=== PATIENT | male | born 1960 | race American Indian/Alaskan Native ===

== ENCOUNTER 2018-02-22 11:51 | Emergency (ER) | payer MEDICAID ==
[2018-02-22 11:53] VITALS: BMI 30.7
--- NOTE | 2018-02-22 13:04 | ED PDOC ---
Arrival/HPI - General Chief Complaint: Back Pain Time Seen by Provider: 02/22/18 12:35 Historian: Patient - History of Present Illness Narrative History of Present Illness (Text): 02/22/18 12:35 57 year old male, with past medical history of arthritis and bronchitis, presents to the emergency department complaining of lower back pain since 1 week. Patient states worsening non-radiating pain associated with difficulty walking today, prompting him to present to the emergency department for evaluation. Patient additionally informs bilateral leg swelling since 1 week, and actively bleeding ulcer on the left leg. Patient denies any fever, chills, nausea, vomiting, diarrhea, abdominal pain, chest pain, shortness of breath, trauma, or any other complaints. Patient admits to smoking cigarettes and occasionally drinking beer. Time/Duration: 1 week Symptom Onset: Gradual Symptom Course: Unchanged Quality: Aching Activities at Onset: Light Context: Home Past Medical History - Provider Review Nursing Documentation Reviewed: Yes - Infectious Disease Hx of Infectious Diseases: None - Tetanus Immunization Tetanus Immunization: Unknown - Cardiac Hx Cardiac Disorders: No - Pulmonary Hx Respiratory Disorders: Yes Hx Bronchitis: Yes - Neurological Hx Neurological Disorder: No - HEENT Hx HEENT Disorder: No - Renal Hx Renal Disorder: No - Endocrine/Metabolic Hx Endocrine Disorders: No - Hematological/Oncological Hx Blood Disorders: No - Integumentary Hx Dermatological Disorder: No - Musculoskeletal/Rheumatological Hx Musculoskeletal Disorders: Yes Hx Arthritis: Yes Hx Falls: No - Gastrointestinal Hx Gastrointestinal Disorders: No - Genitourinary/Gynecological Hx Genitourinary Disorders: No Hx Reproductive Disorders: No - Psychiatric Hx Psychophysiologic Disorder: No Hx Depression: No Hx Substance Use: No - Surgical History Hx Orthopedic Surgery: Yes Other/Comment: Right knee surgery 08/2012, 09/2014 - Anesthesia Hx Anesthesia: Yes Hx Anesthesia Reactions: No Hx Malignant Hyperthermia: No - Suicidal Assessment Feels Threatened In Home Enviroment: No Family/Social History - Physician Review Nursing Documentation Reviewed: Yes Family/Social History: No Known Family HX Smoking Status: Heavy Smoker > 10 Cigarettes Daily Hx Alcohol Use: No Hx Substance Use: No Hx Substance Use Treatment: No Allergies/Home Meds Allergies/Adverse Reactions: Allergies No Known Allergies Allergy (Verified 09/07/15 12:04) Home Medications: Home Meds Medication Instructions Recorded Confirmed Meloxicam [Mobic] 1 tab PO BID 02/22/18 02/22/18 Review of Systems - Physician Review All systems were reviewed & negative as marked: Yes - Review of Systems Constitutional: absent: Fevers Respiratory: absent: SOB Cardiovascular: Edema (bilateral leg edema ). absent: Chest Pain Gastrointestinal: absent: Abdominal Pain, Diarrhea, Nausea, Vomiting Musculoskeletal: Back Pain Skin: Ulcer (left leg actively bleeding ) Physical Exam - Physical Exam Narrative Physical Exam (Text): 02/22/18 12:35 Gen: VS reviewed, alert, well developed, well nourished, nontoxic, mild distress ENT: normal pharynx Eye: EOMI, PERRL Neck: no JVD, supple, no adenopathy CV: regular rate, regular rhythm, no rubs,no murmur, no gallops, S1, S2, pulses equal and strong Pulm: no distress, clear to auscultation, no wheeze, no rhonchi, breath sounds equal, no rales Abd: soft, nontender, no guarding, no rebound, no rigidity, normal bowel sounds Ext: pitting edema up to mid lower leg. Skin: good color, no rash, no cyanosis, ulcer in left upper leg. Psych: responds appropriately to questions, normal affect Neuro: oriented x3, CN2-12 intact grossly, motor intact, sensation intact Vital Signs Reviewed: Yes Vital Signs Temp Pulse Resp BP Pulse Ox 02/22/18 16:54 98.1 F 71 19 124/72 97 02/22/18 13:53 98.3 F 79 19 111/68 99 02/22/18 11:55 98.1 F 85 18 129/81 98 Temperature: Afebrile Blood Pressure: Normal Pulse: Regular Respiratory Rate: Normal Appearance: Positive for: Well-Appearing, Non-Toxic, Comfortable Pain Distress: None Mental Status: Positive for: Alert and Oriented X 3 Medical Decision Making ED Course and Treatment: 02/22/18 12:35 Impression: 57 year old male presents to the emergency department with lower back pain, bilateral leg edema, and ulcer of the left leg. Plan: --EKG --Labs --Chest X-Ray --US of lower extremity -- Reassess and disposition Prior Visits: Notes and results from previous visits were reviewed. Progress Notes: 02/22/18 16:30 02/22/18 16:33 patient was seen for low back pain and peripheral edema. no data to support decomp chf which would warrant admission to the hospital. regarding low back pain there are no neuro deficits, no trauma, no fever, no hx cancer no saddle anesthesia or bowel/bladder incontinence to suggest cord compression. patient did not require analgesics during ED course. patient was informed of necessity to follow up with pcp for further eval of elevated liver enzymes. patient does not have stigmata of cirrhosis of the liver. will start patient on diuretic, patient remained stable throughout ED course and discharged in stable condition. - Lab Interpretations Lab Results: 02/22/18 13:00 02/22/18 13:00 Lab Results 02/22/18 13:00: Sodium 139, Potassium 3.5 L, Chloride 94 L, Carbon Dioxide 35 H , Anion Gap 12, BUN 22 H, Creatinine 0.8, Est GFR ( Amer) > 60, Est GFR ( Non-Af Amer) > 60, Random Glucose 108, Calcium 9.3, Total Bilirubin 0.7, AST 267 H, ALT 134 H, Alkaline Phosphatase 55, NT-Pro-B Natriuret Pep 212, Total Protein 7.4, Albumin 4.2, Globulin 3.2, Albumin/Globulin Ratio 1.3 02/22/18 13:00: PT 11.2, INR 0.97, APTT 32.8 02/22/18 13:00: WBC 5.6, RBC 4.64, Hgb 12.8 L, Hct 35.8 L, MCV 77.2 L, MCH 27.6 , MCHC 35.8, RDW 13.4, Plt Count 263, MPV 9.3, Gran % 39.8 L, Lymph % (Auto) 43.7 H, [place] % (Auto) 11.2 H, Eos % (Auto) 4.6, Baso % (Auto) 0.7, Gran # 2.24, Lymph # (Auto) 2.5, [place] # (Auto) 0.6, Eos # (Auto) 0.3, Baso # (Auto) 0.04 - RAD Interpretation Narrative RAD Interpretations (Text): 02/22/18 15:26 Chest X-ray reviewed by radiologist, shows: Mild bibasilar atelectasis and/or scarring. 02/22/18 16:31 Preliminary result for Ultrasound of lower extremity is negative for bilateral lower extremity DVT. Radiology Orders: 02/22/18 12:37 X-RAY [CHEST ONE VIEW] [RAD] Stat DUPLEX LOWER EXTRM VEIN BILAT [US] Stat Lugger: Radiologist - EKG Interpretation EKG Interpretation (Text): 02/22/18 12:51 NSR @ 74 bpm, nml qrs, nml axis, no acute sttw abn - Scribe Statement The provider has reviewed the documentation as recorded by the Scribe [place] Us, [facility] All medical record entries made by the Scribe were at my direction and personally dictated by me. I have reviewed the chart and agree that the record accurately reflects my personal performance of the history, physical exam, medical decision making, and the department course for this patient. I have also personally directed, reviewed, and agree with the discharge instructions and disposition. Disposition/Present on Arrival - Present on Arrival Any Indicators Present on Arrival: No History of DVT/PE: No History of Uncontrolled Diabetes: No Urinary Catheter: No History of Decub. Ulcer: No History Surgical Site Infection Following: None - Disposition Have Diagnosis and Disposition been Completed?: Yes Diagnosis: Radicular low back pain, Peripheral edema, Abnormal liver enzymes Disposition: HOME/ ROUTINE Disposition Time: 17:44 Patient Problems: Current Active Problems Problem Status Onset Radicular low back pain Acute Peripheral edema Acute Abnormal liver enzymes Acute Condition: GOOD Discharge Instructions (ExitCare): Swelling, Radiculopathy (DC), Liver Function Test Print Language: MALTESE Additional Instructions: follow up with your primary care doctor for further testing of the elevated liver enzymes-this will likely include an ultrasound of the liver. you can anti-inflammatory medications for the back pain such motrin or alever but avoid tylenol for now. return for any new or worsening symptoms. Prescriptions: Furosemide [Lasix] 20 mg PO DAILY 30 Days #30 tab Ibuprofen [Motrin Tab] 600 mg PO QID #30 tab Forms: [employer] ([place]ien)
[2018-02-22 13:08] LABS: BASO # 0.04 K/mm3 (0.0-2.0); BASO % 0.7 % (0.0-3.0); EOS # 0.3 (0.0-0.7); EOS % 4.6 % (1.5-5.0); GRAN # 2.24 (1.4-6.5); GRAN % 39.8 % (50.0-68.0); HEMOGLOBIN 12.8 g/dL (14.0-18.0); LYMPH # 2.5 (1.2-3.4); LYMPH % 43.7 % (22.0-35.0); MEAN CELL VOLUME 77.2 fl (80.0-105.0); MEAN CORPUSCULAR HEMOGLOBIN 27.6 pg (25.0-35.0); MEAN CORPUSCULAR HGB CONC 35.8 g/dl (31.0-37.0); MEAN PLATELET VOLUME 9.3 fl (7.0-11.0); MONO # 0.6 (0.1-0.6); MONO % 11.2 % (1.0-6.0); RBC 4.64 10^6/uL (3.5-6.1); RED CELL DISTRIBUTION WIDTH 13.4 % (11.5-14.5); WHITE BLOOD COUNT 5.6 10^3/ul (4.5-11.0)
[2018-02-22 13:19] LABS: ALB/GLOB RATIO 1.3 (1.1-1.8); ALBUMIN 4.2 g/dL (3.0-4.8); ALT/SGPT 134 U/L (7-56); AST/SGOT 267 U/L (17-59); BLOOD UREA NITROGEN 22 mg/dL (7-21); CALCIUM 9.3 mg/dL (8.4-10.5); GFR AFRICAN-AMERICAN > 60; GFR NON-AFRICAN AMERICAN > 60
[2018-02-22 13:28] LABS: B-TYPE NATRIURETIC PEPTIDE 212 pg/mL (0-450); INR 0.97 (0.93-1.08); PARTIAL THROMBOPLASTIN TIME 32.8 Seconds (25.1-36.5); PROTHROMBIN TIME 11.2 SECONDS (9.4-12.5)
--- NOTE | 2018-02-22 15:22 | RAD ---
PROCEDURE: CHEST RADIOGRAPH, 1 VIEW HISTORY: edema, CHF COMPARISON: Comparison chest 03/15/2012 FINDINGS: LUNGS: Mild bibasilar atelectasis and or scarring. PLEURA: No pneumothorax or pleural fluid seen. CARDIOVASCULAR: Heart size is upper limits of normal/ borderline enlarged with left ventricular configuration. OSSEOUS STRUCTURES: Mild multilevel degenerative spondylosis of the thoracic spine. VISUALIZED UPPER ABDOMEN: Normal. OTHER FINDINGS: None. IMPRESSION: Mild bibasilar atelectasis and/or scarring.
--- NOTE | 2018-02-22 15:35 | CARD ---
APPROVED REPORT EKG Measurement Heart [id number] <Conclusion> Normal sinus rhythm Normal ECG
[2018-02-22 16:55] VITALS: O2SAT 97
[2018-02-22 18:30] VITALS: BP 127/72; PULSE 77; RESP 18; TEMP 98
--- NOTE | 2018-02-22 19:31 | US ---
HISTORY: Leg pain and swelling. Evaluate for DVT PHYSICIAN(S): Lake Deutsch MD. TECHNIQUE: Duplex sonography and color-flow Doppler with graded compression were used to evaluate the deep venous systems of both lower extremities. FINDINGS: The visualized deep venous systems of both lower extremities are sonographically normal and compressible. Normal wave forms and augmentation are seen. There is no sonographic evidence for deep venous thrombosis in the visualized segments of both lower extremities. IMPRESSION: No sonographic evidence for deep venous thrombosis in the visualized segments of both lower extremities.
== END 2018-02-22 17:42 | disposition home or self-care (01) ==
LOC: ED 11:51
DX: M54.5 Low back pain (principal); R74.8 Abnormal levels of other serum enzymes; R60.9 Edema, unspecified; F17.210 Nicotine dependence, cigarettes, uncomplicated

== ENCOUNTER 2018-06-19 10:28 | Observation (INO) | payer MEDICAID ==
[2018-06-19] MEDS ORDERED: Albuterol-Ipratrop 3 mg / 0.5 (3 ml) UD ONE (10:38)
[2018-06-19 10:39] VITALS: BMI 28.5
--- NOTE | 2018-06-19 10:51 | ED PDOC ---
Arrival/HPI - General Historian: Patient - History of Present Illness Narrative History of Present Illness (Text): 06/19/18 10:48 57yr old male with hx of asthma presents today with SOB since last night. pt states he has had URI symptoms for the past 3 days with productive cough. Pt c/of subjective fevers. pt states since late last night he was feeling more and more short of breath. pt states he doesnt have nebulizer and didnt have his asthma pump. pt denies abdominal pain. no trauma or injury. pt denies chest pain but is c/o chest tightness. Time/Duration: Other (3days, worsening over past 8-10hours) Symptom Onset: Gradual Symptom Course: Worsening Quality: Tightness Severity Level: Mild <Malaika Concepcion - Last Filed: 06/19/18 12:36> <Gerhard Zeng - Last Filed: 06/19/18 15:33> - General Chief Complaint: Shortness Of Breath Time Seen by Provider: 06/19/18 10:42 Past Medical History - Provider Review Nursing Documentation Reviewed: Yes - Travel History Have you recently traveled outside [place] w/in the past 3 mons?: No - Infectious Disease Hx of Infectious Diseases: None - Tetanus Immunization Tetanus Immunization: Unknown - Cardiac Hx Cardiac Disorders: No - Pulmonary Hx Respiratory Disorders: Yes Hx Bronchitis: Yes - Neurological Hx Neurological Disorder: No - HEENT Hx HEENT Disorder: No - Renal Hx Renal Disorder: No - Endocrine/Metabolic Hx Endocrine Disorders: No - Hematological/Oncological Hx Blood Disorders: No - Integumentary Hx Dermatological Disorder: No - Musculoskeletal/Rheumatological Hx Musculoskeletal Disorders: Yes Hx Arthritis: Yes Hx Falls: No - Gastrointestinal Hx Gastrointestinal Disorders: No - Genitourinary/Gynecological Hx Genitourinary Disorders: No Hx Reproductive Disorders: No - Psychiatric Hx Psychophysiologic Disorder: No Hx Depression: No Hx Substance Use: No - Surgical History Hx Orthopedic Surgery: Yes Other/Comment: Right knee surgery 08/2012, 09/2014 - Anesthesia Hx Anesthesia: Yes Hx Anesthesia Reactions: No Hx Malignant Hyperthermia: No - Suicidal Assessment Feels Threatened In Home Enviroment: No <Malaika Concepcion - Last Filed: 06/19/18 12:36> Family/Social History - Physician Review Nursing Documentation Reviewed: Yes Family/Social History: Unknown Family HX Smoking Status: Heavy Smoker > 10 Cigarettes Daily Hx Alcohol Use: No Hx Substance Use: No Hx Substance Use Treatment: No <CarleneJoelMalaika T - Last Filed: 06/19/18 12:36> Allergies/Home Meds <CarleneMalaika T - Last Filed: 06/19/18 12:36> <KarriGerhard - Last Filed: 06/19/18 15:33> Allergies/Adverse Reactions: Allergies No Known Allergies Allergy (Verified 06/19/18 10:40) Home Medications: Home Meds Medication Instructions Recorded Confirmed Albuterol Sulfate [Proventil Hfa] 2 puff NEB QID PRN 06/19/18 06/19/18 Gabapentin [Neurontin] 300 mg PO DAILY 06/19/18 06/19/18 Review of Systems - Review of Systems Constitutional: Fevers. absent: Fatigue Respiratory: SOB, Cough Cardiovascular: absent: Chest Pain, Palpitations Gastrointestinal: absent: Abdominal Pain, Constipation, Diarrhea, Nausea, Vomiting Genitourinary Male: absent: Dysuria, Frequency, Hematuria Musculoskeletal: absent: Arthralgias, Back Pain, Neck Pain Skin: absent: Rash, Pruritis Neurological: absent: Headache, Dizziness Psychiatric: absent: Anxiety, Depression, Suicidal Ideation <AceJoel desaijenni Guajardo - Last Filed: 06/19/18 12:36> Physical Exam Vital Signs Reviewed: Yes Vital Signs Temp Pulse Resp BP Pulse Ox 06/19/18 10:38 98 F 99 H 24 144/89 90 L Temperature: Afebrile Blood Pressure: Normal Pulse: Tachycardic Respiratory Rate: Normal Appearance: Positive for: Well-Appearing, Non-Toxic, Comfortable Pain Distress: None Mental Status: Positive for: Alert and Oriented X 3 - Systems Exam Head: Present: Atraumatic Mouth: Present: Moist Mucous Membranes Neck: Present: Normal Range of Motion Respiratory/Chest: Present: Good Air Exchange, Wheezes, Rhonchi, Tachypneic. No: Clear to Auscultation, Respiratory Distress, Accessory Muscle Use Cardiovascular: Present: Regular Rate and Rhythm. No: Murmurs Abdomen: No: Tenderness, Distention, Rebound, Guarding Back: Present: Normal Inspection, Midline Tenderness Upper Extremity: Present: Normal Inspection, Normal ROM Lower Extremity: Present: Normal Inspection Neurological: Present: GCS=15, Speech Normal Skin: Present: Warm, Dry, Normal Color. No: Rashes Psychiatric: Present: Alert, Oriented x 3 <Malaika Concepcion - Last Filed: 06/19/18 12:36> Vital Signs Temp Pulse Resp BP Pulse Ox 06/19/18 12:18 88 19 128/87 96 06/19/18 11:25 21 92 L 06/19/18 10:38 98 F 99 H 24 144/89 90 L <Gerhard Zeng - Last Filed: 06/19/18 15:33> Medical Decision Making ED Course and Treatment: 06/19/18 11:06 57yr old male with shortness of breath and cough worsening over the past 3 days. cbc; wnl cmp wnl dimer wnl trop wnl bnp; wnl ekg normal sinus rhythm at 91 bpm normal axis no ST elevations QTC 420 cxr; no infiltrate pt given 3 duonebs and solumedrol ivp. 06/19/18 12:28 Patient reassessment: Patient with wheezing and rhonchi saturating at 92% on room air placed on nasal cannula with oxygen saturation at 96%. Albuterol added. Magnesium added Blood cultures pending Rocephin and Zithromax started empirically Case discussed with Dr. wagner will admit observational status for asthma exacerbation Impression: Asthma exacerbation Admit observational status to med/surg - RAD Interpretation Radiology Orders: 06/19/18 10:43 CHEST PORTABLE [RAD] Stat - Medication Orders Current Medication Orders: Albuterol/Ipratropium (Duoneb 3 Mg/0.5 Mg (3 Ml) Ud) 3 ml IH Q15M KANDY Stop: 06/19/18 11:16 Discontinued Medications Methylprednisolone (Solu-Medrol) 125 mg IVP STAT STA Stop: 06/19/18 10:43 <Malaika Concepcion - Last Filed: 06/19/18 12:36> - Lab Interpretations Lab Results: 06/19/18 11:07 06/19/18 11:07 Lab Results 06/19/18 12:11: Influenza Typ A,B (EIA) Negative for flu a/b 06/19/18 11:07: D-Dimer, Quantitative < 200 06/19/18 11:07: WBC 7.2, RBC 5.02, Hgb 13.3 L, Hct 38.6 L, MCV 76.9 L, MCH 26.5, MCHC 34.5, RDW 14.3, Plt Count 232, MPV 9.5, Gran % 38.8 L, Lymph % (Auto) 30.4, [place] % (Auto) 10.4 H, Eos % (Auto) 19.4 H, Baso % (Auto) 1.0, Gran # 2.79, Lymph # (Auto) 2.2, [place] # (Auto) 0.8 H, Eos # (Auto) 1.4 H, Baso # (Auto) 0.07 06/19/18 11:07: Sodium 138, Potassium 4.1, Chloride 99, Carbon Dioxide 33, Anion Gap 11, BUN 20, Creatinine 1.2, Est GFR ( Amer) > 60, Est GFR (Non-Af Amer) > 60, Random Glucose 122 H, Calcium 9.1, Total Bilirubin 0.8, AST 32, ALT 20, Alkaline Phosphatase 58, Lactate Dehydrogenase 515, Total Creatine Kinase 456 H, CK-MB (CK-2) 2.5, CK-MB (CK-2) % Cancelled, Troponin I < 0.01, NT-Pro-B Natriuret Pep 83.7, Total Protein 7.5, Albumin 4.0, Globulin 3.4, Albumin/Globulin Ratio 1.2 - RAD Interpretation Radiology Orders: 06/19/18 10:43 CHEST PORTABLE [RAD] Stat - Medication Orders Current Medication Orders: Acetaminophen (Tylenol 325mg Tab) 650 mg PO Q4H PRN PRN Reason: Fever >100.4 F Albuterol/Ipratropium (Duoneb 3 Mg/0.5 Mg (3 Ml) Ud) 3 ml IH Q2H PRN PRN Reason: Shortness of Breath Albuterol/Ipratropium (Duoneb 3 Mg/0.5 Mg (3 Ml) Ud) 3 ml IH [id number] KANDY Gabapentin (Neurontin) 100 mg PO TID KANDY; Protocol Heparin Sodium (Porcine) (Heparin) 5,000 units SC Q12 KANDY; Protocol Azithromycin (Zithromax 500mg In Ns) 500 mg in 250 mls @ 167 mls/hr IVPB STAT STA; Protocol Stop: 06/19/18 13:57 Azithromycin (Zithromax 500mg In Ns) 500 mg in 250 mls @ 167 mls/hr IVPB DAILY KANDY; Protocol Methylprednisolone (Solu-Medrol) 40 mg IVP Q12 KANDY Ondansetron HCl (Zofran Inj) 4 mg IVP Q4H PRN PRN Reason: Nausea/Vomiting Pantoprazole Sodium (Protonix Ec Tab) 40 mg PO 0600 [facility] Discontinued Medications Albuterol Sulfate (Albuterol 0.083% Inhal Brenna (2.5 Mg/3 Ml) Ud) 2.5 mg IH STAT STA Stop: 06/19/18 12:32 Last Admin: 06/19/18 13:08 Dose: 2.5 mg Albuterol/Ipratropium (Duoneb 3 Mg/0.5 Mg (3 Ml) Ud) 3 ml IH Q15M KANDY Stop: 06/19/18 11:16 Last Admin: 06/19/18 12:14 Dose: 3 ml Magnesium Sulfate (Magnesium Sulfate 2 Gm/50 Ml Water) 2 gm in 50 mls @ 50 mls/hr IVPB ONCE ONE Stop: 06/19/18 13:26 Last Admin: 06/19/18 13:30 Dose: 50 mls/hr eMAR Start Stop Document 06/19/18 13:30 MR (Rec: 06/19/18 13:30 MR [id number]) Intravenous Solution Start Date 06/19/18 Start Time 13:30 End Date 06/19/18 End time 14:30 Total Infusion Time 60 Ceftriaxone Sodium (Rocephin 1 Gram Ivpb) 1 gm in 100 mls @ 200 mls/hr IVPB STAT STA; Protocol Stop: 06/19/18 12:57 Last Admin: 06/19/18 13:08 Dose: 200 mls/hr eMAR Start Stop Document 06/19/18 13:08 MR (Rec: 06/19/18 13:09 MR [id number]) Intravenous Solution Start Date 06/19/18 Start Time 13:08 End Date 06/19/18 End time 13:38 Total Infusion Time 30 Methylprednisolone (Solu-Medrol) 125 mg IVP STAT STA Stop: 06/19/18 10:43 Last Admin: 06/19/18 11:11 Dose: 125 mg IVP Administration Document 06/19/18 11:11 MR (Rec: 06/19/18 11:15 MR [id number]) Charges for Administration # of IVP Administrations 1 <Gerhard Zeng - Last Filed: 06/19/18 15:33> - 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 <Gerhard Zeng - Last Filed: 06/19/18 15:33> Disposition/Present on Arrival - Present on Arrival Any Indicators Present on Arrival: No History of DVT/PE: No History of Uncontrolled Diabetes: No Urinary Catheter: No History of Decub. Ulcer: No History Surgical Site Infection Following: None - Disposition Have Diagnosis and Disposition been Completed?: Yes Disposition Time: 12:30 Patient Plan: Observation, Telemetry <Malaika Concepcion - Last Filed: 06/19/18 12:36> <Gerhard Zeng - Last Filed: 06/19/18 15:33> - Disposition Diagnosis: Asthma exacerbation, Cough Disposition: HOSPITALIZED Patient Problems: Current Active Problems Problem Status Onset Asthma exacerbation Acute Cough Acute Condition: FAIR
--- NOTE | 2018-06-19 11:10 | RAD ---
Date of service: 06/19/2018 HISTORY: cough/sob COMPARISON: 02/22/2018 FINDINGS: LUNGS: No active pulmonary disease. PLEURA: No significant pleural effusion identified, no pneumothorax apparent. CARDIOVASCULAR: No aortic atherosclerotic calcification present. Normal cardiac size. No pulmonary vascular congestion. OSSEOUS STRUCTURES: No significant abnormalities. VISUALIZED UPPER ABDOMEN: Normal. OTHER FINDINGS: None. IMPRESSION: No active disease.
[2018-06-19] MEDS: Albuterol-Ipratrop 3 mg / 0.5 (3 ml) UD IH SCH ×5 (11:11→22:44)
[2018-06-19 11:31] LABS: ALB/GLOB RATIO 1.2 (1.1-1.8); ALT/SGPT 20 U/L (7-56); AST/SGOT 32 U/L (17-59); BASO # 0.07 K/mm3 (0.0-2.0); BLOOD UREA NITROGEN 20 mg/dL (7-21); CALCIUM 9.1 mg/dL (8.4-10.5); EOS # 1.4 (0.0-0.7); EOS % 19.4 % (1.5-5.0); GFR NON-AFRICAN AMERICAN > 60; GRAN # 2.79 (1.4-6.5); GRAN % 38.8 % (50.0-68.0); HEMOGLOBIN 13.3 g/dL (14.0-18.0); LYMPH # 2.2 (1.2-3.4); LYMPH % 30.4 % (22.0-35.0); MEAN CELL VOLUME 76.9 fl (80.0-105.0); MEAN CORPUSCULAR HEMOGLOBIN 26.5 pg (25.0-35.0); MEAN CORPUSCULAR HGB CONC 34.5 g/dl (31.0-37.0); MEAN PLATELET VOLUME 9.5 fl (7.0-11.0); MONO # 0.8 (0.1-0.6); MONO % 10.4 % (1.0-6.0); RBC 5.02 10^6/uL (3.5-6.1); RED CELL DISTRIBUTION WIDTH 14.3 % (11.5-14.5); WHITE BLOOD COUNT 7.2 10^3/uL (4.5-11.0)
[2018-06-19 11:43] LABS: B-TYPE NATRIURETIC PEPTIDE 83.7 pg/mL (0-450); TROPONIN I < 0.01 ng/mL
[2018-06-19 11:56] LABS: CK-MB 2.5 ng/mL (0.0-3.6)
[2018-06-19] MEDS ORDERED: Magnesium Sulfate 2 gm/50 ml 2 GM/50 ML BAG IVPB ONE (12:27)
[2018-06-19] MEDS ORDERED: cefTRIAXone 1 gm 1 GM/100 ML BAG IVPB STA (12:28)
[2018-06-19] MEDS ORDERED: Azithromycin 500MG/NS 250ml 500 MG/250 ML BAG IVPB STA (12:28)
[2018-06-19] MEDS ORDERED: Albuterol 0.083% Inhal Sol (2.5 mg/3 mL) UD IH STA (12:31)
[2018-06-19] MEDS ORDERED: Albuterol-Ipratrop 3 mg / 0.5 (3 ml) UD IH PRN (13:28)
--- NOTE | 2018-06-19 13:47 | CP.PCM.HP ---
<Gustabo Faulkner - Last Filed: 06/19/18 13:33> History of Present Illness - History of Present Illness History of Present Illness: 57 year old male with past medical history of asthma, depression, and substance abuse presents to the hospital with 3 days of shortness of breath. Patient states several family members have URI symptoms. He states he began to have a productive cough and subjective fevers at home. During this time, his shortness of breath worsened and he did not have an inhaler as it had . Patient states his last asthma exacerbation was 2 years ago. Patient admits to smoking 1/4 ppd of tobacco. Patient also inhaled heroin 2 days ago. Patient denies chest pain, nausea, vomiting, diarrhea, dysuria, numbness, tingling. Medical history: As above Surgical Hx: Right knee surgery Family Hx: Denies Social Hx: 1/4 ppd tobacco use, occasional alcohol use. Snorts heroin Allergies: NKDA Medications: Neurontin Present on Admission - Present on Admission Any Indicators Present on Admission: No Review of Systems - Review of Systems Review of Systems: 12 point ROS as per HPI, otherwise negative Past Patient History - Infectious Disease Hx of Infectious Diseases: None - Tetanus Immunizations Tetanus Immunization: Unknown - Past Social History Smoking Status: Heavy Smoker > 10 Cigarettes Daily - CARDIAC Hx Cardiac Disorders: No - PULMONARY Hx Respiratory Disorders: Yes Hx Bronchitis: Yes - NEUROLOGICAL Hx Neurological Disorder: No - HEENT Hx HEENT Problems: No - RENAL Hx Chronic Kidney Disease: No - ENDOCRINE/METABOLIC Hx Endocrine Disorders: No - HEMATOLOGICAL/ONCOLOGICAL Hx Blood Disorders: No - INTEGUMENTARY Hx Dermatological Problems: No - MUSCULOSKELETAL/RHEUMATOLOGICAL Hx Musculoskeletal Disorders: Yes Hx Arthritis: Yes Hx Falls: No - GASTROINTESTINAL Hx Gastrointestinal Disorders: No - GENITOURINARY/GYNECOLOGICAL Hx Genitourinary Disorders: No Hx Reproductive Disorders: No - PSYCHIATRIC Hx Psychophysiologic Disorder: No Hx Depression: No Hx Substance Use: No - SURGICAL HISTORY Hx Orthopedic Surgery: Yes Other/Comment: Right knee surgery 08/2012, 09/2014 - ANESTHESIA Hx Anesthesia: Yes Hx Anesthesia Reactions: No Hx Malignant Hyperthermia: No Meds Allergies/Adverse Reactions: Allergies Allergy/AdvReac Type Severity Reaction Status Date / Time No Known Allergies Allergy Verified 06/19/18 10:40 Physical Exam - Constitutional Appears: Non-toxic, No Acute Distress - Head Exam Head Exam: ATRAUMATIC, NORMAL INSPECTION, NORMOCEPHALIC - Eye Exam Eye Exam: EOMI, Normal appearance - ENT Exam ENT Exam: Mucous Membranes Moist, Normal Exam - Respiratory Exam Respiratory Exam: Decreased Breath Sounds, Wheezes. absent: Rales, Rhonchi - Cardiovascular Exam Cardiovascular Exam: RRR, +S1, +S2 - GI/Abdominal Exam GI & Abdominal Exam: Normal Bowel Sounds, Soft. absent: Tenderness - Extremities Exam Extremities exam: Positive for: normal inspection. Negative for: calf tenderness, pedal edema - Neurological Exam Neurological exam: Alert, CN II-XII Intact, Oriented x3 - Psychiatric Exam Psychiatric exam: Normal Affect, Normal Mood - Skin Skin Exam: Dry, Intact Additional comments: Dark spots on soles of feet Results - Vital Signs Recent Vital Signs: Last Vital Signs Temp 98 F 06/19/18 10:38 Pulse 88 06/19/18 12:18 Resp 19 06/19/18 12:18 BP 128/87 06/19/18 12:18 Pulse Ox 96 06/19/18 12:18 - Labs Result Diagrams: 06/19/18 11:07 06/19/18 11:07 Labs: Laboratory Results - last 24 hr 06/19/18 06/19/18 06/19/18 11:07 11:07 11:07 WBC 7.2 RBC 5.02 Hgb 13.3 L Hct 38.6 L MCV 76.9 L MCH 26.5 MCHC 34.5 RDW 14.3 Plt Count 232 MPV 9.5 Gran % 38.8 L Lymph % (Auto) 30.4 [place] % (Auto) 10.4 H Eos % (Auto) 19.4 H Baso % (Auto) 1.0 Gran # 2.79 Lymph # (Auto) 2.2 [place] # (Auto) 0.8 H Eos # (Auto) 1.4 H Baso # (Auto) 0.07 D-Dimer, Quantitative < 200 Sodium 138 Potassium 4.1 Chloride 99 Carbon Dioxide 33 Anion Gap 11 BUN 20 Creatinine 1.2 Est GFR ( Amer) > 60 Est GFR (Non-Af Amer) > 60 Random Glucose 122 H Calcium 9.1 Total Bilirubin 0.8 AST 32 ALT 20 Alkaline Phosphatase 58 Lactate Dehydrogenase 515 Total Creatine Kinase 456 H CK-MB (CK-2) 2.5 CK-MB (CK-2) % Cancelled Troponin I < 0.01 NT-Pro-B Natriuret Pep 83.7 Total Protein 7.5 Albumin 4.0 Globulin 3.4 Albumin/Globulin Ratio 1.2 Influenza Typ A,B (EIA) 06/19/18 12:11 WBC RBC Hgb Hct MCV MCH MCHC RDW Plt Count MPV Gran % Lymph % (Auto) [place] % (Auto) Eos % (Auto) Baso % (Auto) Gran # Lymph # (Auto) [place] # (Auto) Eos # (Auto) Baso # (Auto) D-Dimer, Quantitative Sodium Potassium Chloride Carbon Dioxide Anion Gap BUN Creatinine Est GFR ( Amer) Est GFR (Non-Af Amer) Random Glucose Calcium Total Bilirubin AST ALT Alkaline Phosphatase Lactate Dehydrogenase Total Creatine Kinase CK-MB (CK-2) CK-MB (CK-2) % Troponin I NT-Pro-B Natriuret Pep Total Protein Albumin Globulin Albumin/Globulin Ratio Influenza Typ A,B (EIA) Negative for flu a/b Assessment & Plan - Assessment and Plan (Free Text) Plan: 57 year old male with past medical history of asthma, depression, and substance abuse presents with asthma exacerbation. 1. Asthma exacerbation Duonebs q4h jj and q2h prn Azithromycin Solumedrol 40 q12h 2. Tobacco abuse Counseled on tobacco cessation Nicotine patch 3. Chronic knee pain Neurontin 4. Prophylaxis Heparin Protonix Lucie, PGY-3 <Bernardo Nix - Last Filed: 06/19/18 14:17> Results - Vital Signs Recent Vital Signs: Last Vital Signs Temp 98 F 06/19/18 10:38 Pulse 84 06/19/18 12:37 Resp 18 06/19/18 12:37 BP 143/94 H 06/19/18 12:37 Pulse Ox 94 L 06/19/18 12:37 - Labs Result Diagrams: 06/19/18 11:07 06/19/18 11:07 Labs: Laboratory Results - last 24 hr 06/19/18 06/19/18 06/19/18 11:07 11:07 11:07 WBC 7.2 RBC 5.02 Hgb 13.3 L Hct 38.6 L MCV 76.9 L MCH 26.5 MCHC 34.5 RDW 14.3 Plt Count 232 MPV 9.5 Gran % 38.8 L Lymph % (Auto) 30.4 [place] % (Auto) 10.4 H Eos % (Auto) 19.4 H Baso % (Auto) 1.0 Gran # 2.79 Lymph # (Auto) 2.2 [place] # (Auto) 0.8 H Eos # (Auto) 1.4 H Baso # (Auto) 0.07 D-Dimer, Quantitative < 200 Sodium 138 Potassium 4.1 Chloride 99 Carbon Dioxide 33 Anion Gap 11 BUN 20 Creatinine 1.2 Est GFR ( Amer) > 60 Est GFR (Non-Af Amer) > 60 Random Glucose 122 H Calcium 9.1 Total Bilirubin 0.8 AST 32 ALT 20 Alkaline Phosphatase 58 Lactate Dehydrogenase 515 Total Creatine Kinase 456 H CK-MB (CK-2) 2.5 CK-MB (CK-2) % Cancelled Troponin I < 0.01 NT-Pro-B Natriuret Pep 83.7 Total Protein 7.5 Albumin 4.0 Globulin 3.4 Albumin/Globulin Ratio 1.2 Influenza Typ A,B (EIA) 06/19/18 12:11 WBC RBC Hgb Hct MCV MCH MCHC RDW Plt Count MPV Gran % Lymph % (Auto) [place] % (Auto) Eos % (Auto) Baso % (Auto) Gran # Lymph # (Auto) [place] # (Auto) Eos # (Auto) Baso # (Auto) D-Dimer, Quantitative Sodium Potassium Chloride Carbon Dioxide Anion Gap BUN Creatinine Est GFR ( Amer) Est GFR (Non-Af Amer) Random Glucose Calcium Total Bilirubin AST ALT Alkaline Phosphatase Lactate Dehydrogenase Total Creatine Kinase CK-MB (CK-2) CK-MB (CK-2) % Troponin I NT-Pro-B Natriuret Pep Total Protein Albumin Globulin Albumin/Globulin Ratio Influenza Typ A,B (EIA) Negative for flu a/b Attending/Attestation - Attestation I have personally seen and examined this patient.: Yes I have fully participated in the care of the patient.: Yes I have reviewed all pertinent clinical information: Yes Notes (Text): 06/19/18 14:14 Medical record note made by the resident after discussion with my direction and input after the patient was personally seen and examined by me. I have reviewed the chart and agree that the record accurately reflects by personal performance of the history, physical exam, data review, and medical decision-making, in the course for the patient. I have also personally directed the plan of care. 57 year old male with past medical history of Mild Intermittent asthma, depression, and substance abuse is admitted with acute asthma exacerbation, triggered by upper respiratory infection. Chest X ray is negative for Pneumonia, we will check for Influenza Continue Neb/Steroid and antibiotics. Issue of ongoing drug abuse was discussed in detail with him. Management plan was discussed in detail with patient. Education was provided.
--- NOTE | 2018-06-19 15:46 | CARD ---
APPROVED REPORT Date of service: 06/19/2018 EKG Measurement Heart [id number] <Conclusion> Normal sinus rhythm Minimal voltage criteria for LVH, may be normal variant Borderline ECG
[2018-06-19] MEDS: MethylPREDNISolone 40 mg Vial IVP SCH (22:29)
[2018-06-20] MEDS: Albuterol-Ipratrop 3 mg / 0.5 (3 ml) UD IH SCH ×5 (02:59→21:02)
[2018-06-20] MEDS ORDERED: Pantoprazole 40 mg EC Tab PO SCH (06:00)
[2018-06-20 07:52] LABS: MEAN CELL VOLUME 76.1 fl (80.0-105.0); MEAN CORPUSCULAR HEMOGLOBIN 26.6 pg (25.0-35.0); MEAN CORPUSCULAR HGB CONC 34.9 g/dl (31.0-37.0); MEAN PLATELET VOLUME 9.9 fl (7.0-11.0); RBC 5.27 10^6/uL (3.5-6.1); RED CELL DISTRIBUTION WIDTH 14.3 % (11.5-14.5); WHITE BLOOD COUNT 12.1 10^3/uL (4.5-11.0)
[2018-06-20 08:14] LABS: ALB/GLOB RATIO 1.2 (1.1-1.8); ALT/SGPT 19 U/L (7-56); AST/SGOT 24 U/L (17-59); BLOOD UREA NITROGEN 14 mg/dL (7-21); CALCIUM 9.7 mg/dL (8.4-10.5); GFR NON-AFRICAN AMERICAN > 60
[2018-06-20] MEDS: MethylPREDNISolone 40 mg Vial IVP SCH (09:18)
[2018-06-20] MEDS ORDERED: Enoxaparin 40 mg Syringe SC SCH (10:00)
[2018-06-20] MEDS ORDERED: Azithromycin 500MG/NS 250ml 500 MG/250 ML BAG IVPB SCH (10:00)
--- NOTE | 2018-06-20 14:21 | CP.PCM.PN ---
<Luis Canales - Last Filed: 06/20/18 15:54> Subjective - Date & Time of Evaluation Date of Evaluation: 06/20/18 Time of Evaluation: 09:45 - Subjective Subjective: PGY-1 Medicine Progress Note for Dr. Nix Patient seen and examined repeatedly coughing this morning at bedside. Pt states he was not able to sleep much overnight because of cough, SOB. No other acute overnight events reported. Objective - Vital Signs/Intake and Output Vital Signs (last 24 hours): Temp Pulse Resp BP Pulse Ox 97.7 F 71 20 106/69 96 06/20/18 08:54 06/20/18 08:54 06/20/18 08:54 06/20/18 08:54 06/20/18 08:54 Intake and Output: 06/20/18 06/20/18 06:59 18:59 Intake Total Balance - Medications Medications: Current Medications Acetaminophen (Tylenol 325mg Tab) 650 mg PO Q4H PRN PRN Reason: Fever >100.4 F Last Admin: 06/20/18 03:02 Dose: 650 mg Albuterol/Ipratropium (Duoneb 3 Mg/0.5 Mg (3 Ml) Ud) 3 ml IH Q2H PRN PRN Reason: Shortness of Breath Albuterol/Ipratropium (Duoneb 3 Mg/0.5 Mg (3 Ml) Ud) 3 ml IH [id number] JJ Last Admin: 06/20/18 11:23 Dose: 3 ml Enoxaparin Sodium (Lovenox) 40 mg SC DAILY JJ; Protocol Last Admin: 06/20/18 09:19 Dose: 40 mg Gabapentin (Neurontin) 100 mg PO TID JJ; Protocol Last Admin: 06/20/18 14:07 Dose: 100 mg Azithromycin (Zithromax 500mg In Ns) 500 mg in 250 mls @ 167 mls/hr IVPB DAILY JJ; Protocol Last Admin: 06/20/18 09:20 Dose: 167 mls/hr Methylprednisolone (Solu-Medrol) 40 mg IVP Q12 JJ Last Admin: 06/20/18 09:18 Dose: 40 mg Nicotine (Nicoderm Cq) 1 patch TD DAILY JJ Last Admin: 06/20/18 09:20 Dose: 1 patch Ondansetron HCl (Zofran Inj) 4 mg IVP Q4H PRN PRN Reason: Nausea/Vomiting Pantoprazole Sodium (Protonix Ec Tab) 40 mg PO 0600 JJ Last Admin: 06/20/18 05:43 Dose: 40 mg - Labs Labs: 06/20/18 07:00 06/20/18 07:00 - Constitutional Appears: Non-toxic, No Acute Distress, Other (coughing) - Head Exam Head Exam: ATRAUMATIC, NORMAL INSPECTION, NORMOCEPHALIC - Eye Exam Eye Exam: EOMI, Normal appearance Pupil Exam: NORMAL ACCOMODATION - ENT Exam ENT Exam: Mucous Membranes Moist, Normal Exam - Neck Exam Neck Exam: Full ROM, Normal Inspection - Respiratory Exam Respiratory Exam: Wheezes, NORMAL BREATHING PATTERN. absent: Accessory Muscle Use, Rales, Rhonchi, Respiratory Distress, Stridor - Cardiovascular Exam Cardiovascular Exam: REGULAR RHYTHM, +S1, +S2 - GI/Abdominal Exam GI & Abdominal Exam: Soft, Normal Bowel Sounds. absent: Distended, Firm, Guarding, Rigid, Tenderness, Organomegaly, Rebound - Extremities Exam Extremities Exam: Full ROM, Normal Capillary Refill, Normal Inspection. absent: Calf Tenderness, Pedal Edema - Back Exam Back Exam: NORMAL INSPECTION - Psychiatric Exam Psychiatric exam: Normal Affect, Normal Mood - Skin Skin Exam: Dry, Intact, Normal Color, Warm Assessment and Plan - Assessment and Plan (Free Text) Assessment: 57 year old male with past medical history of asthma, depression, and substance abuse presents with asthma exacerbation. Plan: Asthma exacerbation --triggered by URI --CXR negative for PNA --influenza serology negative --Medications -Duonebs q4h jj and q2h prn -Solumedrol 40 q12h -Azithromycin -Zofran -Robitussin Tobacco abuse --Counseled on tobacco cessation --Nicotine patch Chronic knee pain --Neurontin PPx, Diet, Disposition --DVT: Lovenox --GI: Protonix --Diet: regular Case discussed with Dr. Dinah Canales DO, PGY-1 <Bernardo Nix - Last Filed: 06/20/18 17:25> Objective - Vital Signs/Intake and Output Vital Signs (last 24 hours): Temp Pulse Resp BP Pulse Ox 97.7 F 71 20 106/69 96 06/20/18 08:54 06/20/18 08:54 11/04/18 08:54 06/20/18 08:54 06/20/18 08:54 Intake and Output: 06/20/18 06/20/18 06:59 18:59 Intake Total Balance - Medications Medications: Current Medications Acetaminophen (Tylenol 325mg Tab) 650 mg PO Q4H PRN PRN Reason: Fever >100.4 F Last Admin: 06/20/18 16:55 Dose: 650 mg Albuterol/Ipratropium (Duoneb 3 Mg/0.5 Mg (3 Ml) Ud) 3 ml IH Q2H PRN PRN Reason: Shortness of Breath Albuterol/Ipratropium (Duoneb 3 Mg/0.5 Mg (3 Ml) Ud) 3 ml IH [id number] [facility] Last Admin: 06/20/18 15:36 Dose: 3 ml Enoxaparin Sodium (Lovenox) 40 mg SC DAILY [facility]; Protocol Last Admin: 06/20/18 09:19 Dose: 40 mg Gabapentin (Neurontin) 100 mg PO TID JJ; Protocol Last Admin: 06/20/18 16:57 Dose: 100 mg Guaifenesin (Robitussin) 200 mg PO Q4H PRN PRN Reason: Cough and congestion Azithromycin (Zithromax 500mg In Ns) 500 mg in 250 mls @ 167 mls/hr IVPB DAILY JJ; Protocol Last Admin: 06/20/18 09:20 Dose: 167 mls/hr Methylprednisolone (Solu-Medrol) 40 mg IVP Q12 JJ Last Admin: 06/20/18 09:18 Dose: 40 mg Nicotine (Nicoderm Cq) 1 patch TD DAILY [facility] Last Admin: 06/20/18 09:20 Dose: 1 patch Ondansetron HCl (Zofran Inj) 4 mg IVP Q4H PRN PRN Reason: Nausea/Vomiting Pantoprazole Sodium (Protonix Ec Tab) 40 mg PO 0600 [facility] Last Admin: 06/20/18 05:43 Dose: 40 mg - Labs Labs: 06/20/18 07:00 06/20/18 07:00 Attending/Attestation - Attestation I have personally seen and examined this patient.: Yes I have fully participated in the care of the patient.: Yes I have reviewed all pertinent clinical information, including history, physical exam and plan: Yes Notes (Text): 06/20/18 17:21 Medical record note made by the resident after discussion with my direction and input after the patient was personally seen and examined by me. I have reviewed the chart and agree that the record accurately reflects by personal performance of the history, physical exam, data review, and medical decision-making, in the course for the patient. I have also personally directed the plan of care. 57 year old male with past medical history of Mild Intermittent asthma, depression, and substance abuse is admitted with acute asthma exacerbation, triggered by upper respiratory infection, Patient wheezing is improving but still has significant dry cough, likely post viral rather than Asthma related. Continue Neb/Steroid and antibiotics. If he keep improving, can be discharged home in 24 hour on tapering dose of Prednisone, Albuterol and low dose steroid inhaler. Issue of ongoing smoking, alcohol and drug abuse was discussed in detail with him. Management plan was discussed in detail with patient. Education was provided. 06/20/18 17:23
[2018-06-20] MEDS ORDERED: guaiFENesin 200 mg/10 ml Syrup UD PO PRN (14:27)
[2018-06-20 17:46] VITALS: BP 128/83; PULSE 86; RESP 18; TEMP 98.5; O2SAT 93
--- NOTE | 2018-06-21 05:16 | CP.PCM.PN ---
Subjective - Date & Time of Evaluation Date of Evaluation: 06/20/18 Time of Evaluation: 22:00 - Subjective Subjective: Mohit Alexander DO, PGY-1 Hospitalist Progress Note for Dr. Joseph Giraldo Patient was seen at bedside. He states that he would like to leave AMA. Consequences of leaving AMA were explained in detail to patient, including the possibility of worsening pulmonary, cardiac function that may lead to . Patient verbalized understanding of potential consequences and signed proper AMA forms. Objective - Vital Signs/Intake and Output Vital Signs (last 24 hours): Temp Pulse Resp BP Pulse Ox 98.5 F 86 18 128/83 93 L 06/20/18 14:00 06/20/18 14:00 06/20/18 14:00 06/20/18 14:00 06/20/18 14:00 - Labs Labs: 06/20/18 07:00 06/20/18 07:00
--- NOTE | 2018-06-21 07:43 | CP.PCM.DIS ---
Provider - Provider Date of Admission: 06/19/18 12:36 Attending physician: Bernardo Nix MD Time Spent in preparation of Discharge (in minutes): 35 Diagnosis - Discharge Diagnosis (1) Asthma exacerbation Status: Acute Hospital Course - Lab Results Lab Results: Micro Results 06/19/18 13:27 Blood Blood Culture - Preliminary NO GROWTH AFTER 24 HOURS 06/19/18 13:07 Blood Blood Culture - Preliminary NO GROWTH AFTER 24 HOURS Most Recent Lab Values WBC 12.1 10^3/uL (4.5-11.0) H D 06/20/18 07:00 RBC 5.27 10^6/uL (3.5-6.1) 06/20/18 07:00 Hgb 14.0 g/dL (14.0-18.0) 06/20/18 07:00 Hct 40.1 % (42.0-52.0) L 06/20/18 07:00 MCV 76.1 fl (80.0-105.0) L 06/20/18 07:00 MCH 26.6 pg (25.0-35.0) 06/20/18 07:00 MCHC 34.9 g/dl (31.0-37.0) 06/20/18 07:00 RDW 14.3 % (11.5-14.5) 06/20/18 07:00 Plt Count 241 10^3/uL (120.0-450.0) 06/20/18 07:00 MPV 9.9 fl (7.0-11.0) 06/20/18 07:00 Gran % 38.8 % (50.0-68.0) L 06/19/18 11:07 Lymph % (Auto) 30.4 % (22.0-35.0) 06/19/18 11:07 [place] % (Auto) 10.4 % (1.0-6.0) H 06/19/18 11:07 Eos % (Auto) 19.4 % (1.5-5.0) H 06/19/18 11:07 Baso % (Auto) 1.0 % (0.0-3.0) 06/19/18 11:07 Gran # 2.79 (1.4-6.5) 06/19/18 11:07 Lymph # (Auto) 2.2 (1.2-3.4) 06/19/18 11:07 [place] # (Auto) 0.8 (0.1-0.6) H 06/19/18 11:07 Eos # (Auto) 1.4 (0.0-0.7) H 06/19/18 11:07 Baso # (Auto) 0.07 K/mm3 (0.0-2.0) 06/19/18 11:07 D-Dimer, Quantitative < 200 ng/mlDDU (0-243) 06/19/18 11:07 Sodium 136 mmol/L (132-148) 06/20/18 07:00 Potassium 4.0 mmol/L (3.6-5.0) 06/20/18 07:00 Chloride 100 mmol/L (98-107) 06/20/18 07:00 Carbon Dioxide 29 mmol/L (21-33) 06/20/18 07:00 Anion Gap 11 (10-20) 06/20/18 07:00 BUN 14 mg/dL (7-21) 06/20/18 07:00 Creatinine 0.8 mg/dl (0.8-1.5) 06/20/18 07:00 Est GFR ( Amer) > 60 06/20/18 07:00 Est GFR (Non-Af Amer) > 60 06/20/18 07:00 Random Glucose 131 mg/dL (70-110) H 06/20/18 07:00 Calcium 9.7 mg/dL (8.4-10.5) 06/20/18 07:00 Total Bilirubin 0.9 mg/dL (0.2-1.3) 06/20/18 07:00 AST 24 U/L (17-59) 06/20/18 07:00 ALT 19 U/L (7-56) 06/20/18 07:00 Alkaline Phosphatase 63 U/L (38-126) 06/20/18 07:00 Lactate Dehydrogenase 515 U/L (333-699) 06/19/18 11:07 Total Creatine Kinase 456 U/L (35-230) H 06/19/18 11:07 CK-MB (CK-2) 2.5 ng/mL (0.0-3.6) 06/19/18 11:07 CK-MB (CK-2) % Cancelled 06/19/18 11:07 Troponin I < 0.01 ng/mL 06/19/18 11:07 NT-Pro-B Natriuret Pep 83.7 pg/mL (0-450) 06/19/18 11:07 Total Protein 7.5 g/dL (5.8-8.3) 06/20/18 07:00 Albumin 4.0 g/dL (3.0-4.8) 06/20/18 07:00 Globulin 3.5 gm/dL 06/20/18 07:00 Albumin/Globulin Ratio 1.2 (1.1-1.8) 06/20/18 07:00 Influenza Typ A,B (EIA) Negative for flu a/b (NEGATIVE) 06/19/18 12:11 - Hospital Course Hospital Course: 57 year old male with past medical history of asthma who presented to [facility] ED complaining of shortness of breathe for 3 days. Patient reports poor compliance with asthma medication secondary to expiration and access to medical care. Patient was admitted to the hospital for asthma exacerbation. Patient placed on breathing treatment regiment given antibiotics, steroids and counseled on tobacco cessation. Patient testing revealed negative influenza, chest x-ray negative for pneumonia. Patient was monitored and treated over night and into the next day when he decided he no longer needed medical attention. Patient decided to sign himself out against medical advice. Patient was counseled on risks and benefits of signing out against medical advice, he was counseled on appropriate follow up as well as medication adherence. Patient was in understanding and verbally agreed with instructions. Patient was instructed to return to emergency department if symptoms returned. - Date & Time of H&P Date of H&P: 06/19/18 Time of H&P: 13:33 Discharge Exam - Additional Findings Additional findings: Physical exam unable to obtain, see note day of discharge Discharge Plan - Follow Up Plan Condition: FAIR Disposition: AGAINST MEDICAL ADVICE
== END 2018-06-20 22:38 | disposition left against medical advice (07) ==
LOC: ED 10:28 → ERH 12:36 → 5RSO 14:06
PROVIDERS: ADMIT Internal Medicine; ATTEND Internal Medicine
DX: J45.21 Mild intermittent asthma with (acute) exacerbation (principal); F17.200 Nicotine dependence, unspecified, uncomplicated; M19.90 Unspecified osteoarthritis, unspecified site; R40.2412 Glasgow coma scale score 13-15, at arrival to emergency department; F19.11 Other psychoactive substance abuse, in remission; M25.569 Pain in unspecified knee
CPT/HCPCS: 36415; 71045; 80053; 82550; 82553; 83615; 83880; 84484; 85025; 85027; 85378; 87040; 87804; 93005; 94640; 94760; 96365; 96367; 96372; 96375; 96376; 99284; G0378; J0456; J0696; J1650; J2920; J2930

== ENCOUNTER 2018-08-23 18:48 | Emergency (ER) | payer MEDICAID ==
[2018-08-23 20:03] VITALS: BMI 29.5
[2018-08-23 20:36] VITALS: BP 141/83; PULSE 85; RESP 18; TEMP 98.4; O2SAT 96
--- NOTE | 2018-08-23 22:57 | ED PDOC ---
Arrival/HPI - General Chief Complaint: Lower Extremity Problem/Injury Time Seen by Provider: 08/23/18 19:16 Historian: Patient - History of Present Illness Narrative History of Present Illness (Text): 08/23/18 23:14 57 year old male, whose past medical history includes right knee surgery in 2012 and 2014, presents to the emergency department complaining of right knee pain for 3 days. Patient states he does not follow up with a PMD or Orthopedist. Patient denies any trauma or recent fall. Patient denies any fevers, chills, headache, dizziness, chest pain, shortness of breath, cough, abdominal pain, nausea, vomiting, diarrhea, back pain, neck pain, or any other complaint. Time/Duration: < week (3 days) Symptom Onset: Gradual Symptom Course: Unchanged Quality: Aching Past Medical History - Provider Review Nursing Documentation Reviewed: Yes - Infectious Disease Hx of Infectious Diseases: None - Tetanus Immunization Tetanus Immunization: Unknown - Cardiac Hx Cardiac Disorders: No - Pulmonary Hx Respiratory Disorders: Yes Hx Asthma: Yes Hx Bronchitis: Yes - Neurological Hx Neurological Disorder: No - HEENT Hx HEENT Disorder: No - Renal Hx Renal Disorder: No - Endocrine/Metabolic Hx Endocrine Disorders: No - Hematological/Oncological Hx Blood Disorders: No - Integumentary Hx Dermatological Disorder: No - Musculoskeletal/Rheumatological Hx Musculoskeletal Disorders: Yes Hx Arthritis: Yes Hx Falls: No Other/Comment: right knee Sx - Gastrointestinal Hx Gastrointestinal Disorders: No - Genitourinary/Gynecological Hx Genitourinary Disorders: No - Psychiatric Hx Psychophysiologic Disorder: Yes Hx Depression: Yes Hx Substance Use: Yes (heroine, MJ) Other/Comment: h/o suicidal ideation , 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, MJ and heroine use - Surgical History Hx Orthopedic Surgery: Yes Other/Comment: Right knee surgery 08/2012, 09/2014 - Anesthesia Hx Anesthesia: Yes Hx Anesthesia Reactions: No Hx Malignant Hyperthermia: No - Suicidal Assessment Feels Threatened In Home Enviroment: No Family/Social History - Physician Review Nursing Documentation Reviewed: Yes Family/Social History: No Known Family HX Smoking Status: Current Some Days Smoker Hx Alcohol Use: No Hx Substance Use: Yes (heroine, MJ) Hx Substance Use Treatment: No Allergies/Home Meds Allergies/Adverse Reactions: Allergies No Known Allergies Allergy (Verified 08/23/18 19:54) Home Medications: Home Meds Medication Instructions Recorded Confirmed No Known Home Med 08/23/18 08/23/18 Review of Systems - Physician Review All systems were reviewed & negative as marked: Yes - Review of Systems Constitutional: absent: Fevers, Night Sweats Respiratory: absent: SOB, Cough Cardiovascular: absent: Chest Pain Gastrointestinal: absent: Abdominal Pain, Diarrhea, Nausea, Vomiting Musculoskeletal: Arthralgias (right knee). absent: Back Pain, Neck Pain Neurological: absent: Headache, Dizziness Physical Exam Vital Signs Temp Pulse Resp BP Pulse Ox 08/23/18 20:35 98.4 F 85 18 141/83 96 - Systems Exam Head: Present: Atraumatic, Normocephalic Pupils: Present: PERRL Extroacular Muscles: Present: EOMI Conjunctiva: Present: Normal Mouth: Present: Moist Mucous Membranes Neck: Present: Normal Range of Motion Respiratory/Chest: Present: Clear to Auscultation, Good Air Exchange. No: Respiratory Distress, Accessory Muscle Use Cardiovascular: Present: Regular Rate and Rhythm, Normal S1, S2. No: Murmurs Abdomen: No: Tenderness, Distention, Peritoneal Signs Back: Present: Normal Inspection Upper Extremity: Present: Normal Inspection. No: Cyanosis, Edema Lower Extremity: Present: Other (arthritic changes in the right knee). No: Edema, Normal ROM (Decreased ROM) Neurological: Present: GCS=15, CN II-XII Intact, Speech Normal Skin: Present: Warm, Dry, Normal Color. No: Rashes Psychiatric: Present: Alert, Oriented x 3, Normal Insight, Normal Concentration Medical Decision Making ED Course and Treatment: 08/23/18 21:05 Impression: 57 year old male presents with right knee pain Plan: -- Toradol -- Reassess and disposition Prior Visits: Notes and results from previous visits were reviewed. Progress Notes: 08/23/18 21:15 Patient is not present in the ER any longer. - Medication Orders Current Medication Orders: Discontinued Medications Ketorolac Tromethamine (Toradol) 60 mg IM STAT STA Stop: 08/23/18 20:17 Last Admin: 08/23/18 20:40 Dose: 60 mg MAR Pain Assessment Document 08/23/18 20:40 SS (Rec: 08/23/18 20:40 SS [id number] Pain Reassessment Is this a pain reassessment? Yes Location Pain Location Body Site Knee IM Administration Charges Document 08/23/18 20:40 SS (Rec: 08/23/18 20:40 SS [id number]) Injection Site MAR Injection Site Right Deltoid Charges for Administration # of IM Administrations 1 - Scribe Statement The provider has reviewed the documentation as recorded by the Scribe [place] Provider Scribe Attestation: All medical record entries made by the Scribe were at my direction and personally dictated by me. I have reviewed the chart and agree that the record accurately reflects my personal performance of the history, physical exam, medical decision making, and the department course for this patient. I have also personally directed, reviewed, and agree with the discharge instructions and disposition. Disposition/Present on Arrival - Present on Arrival Any Indicators Present on Arrival: No History of DVT/PE: No History of Uncontrolled Diabetes: No Urinary Catheter: No History of Decub. Ulcer: No History Surgical Site Infection Following: None - Disposition Have Diagnosis and Disposition been Completed?: Yes Diagnosis: Knee pain Disposition: ELOPEMENT - ER ONLY Disposition Time: 21:20 Condition: UNKNOWN Referrals: Jono Moncada MD [Primary Care Provider] - Follow up with primary Forms: [employer] (Bulgarian)
== END 2018-08-23 22:00 | disposition left against medical advice (07) ==
LOC: ED 18:48
DX: M25.561 Pain in right knee (principal)
CPT/HCPCS: 96372; 99281; J1885

== ENCOUNTER 2018-10-12 08:39 | Emergency (ER) | payer MEDICAID ==
[2018-10-12 08:39] VITALS: BMI 28.5
[2018-10-12 09:02] VITALS: RESP 18; TEMP 98.6
--- NOTE | 2018-10-12 09:26 | ED PDOC ---
Arrival/HPI - General Chief Complaint: Abnormal Skin Integrity Historian: Patient - History of Present Illness Narrative History of Present Illness (Text): 10/12/18 09:11 57 y/o male, pmh including asthma, nkda, c/o itching rash on the bilateral wrist/forearm x 2 days after putting on clothes and cleaning out bushes. Itching rash, been scratching, painful, no fever or chills, no headache or night sweat, no dizziness, no change in vision, no numbness or tingling, no other medical or psychological complaints. Past Medical History - Provider Review Nursing Documentation Reviewed: Yes - Infectious Disease Hx of Infectious Diseases: None - Tetanus Immunization Tetanus Immunization: Unknown - Cardiac Hx Cardiac Disorders: No - Pulmonary Hx Respiratory Disorders: Yes Hx Asthma: Yes Hx Bronchitis: Yes - Neurological Hx Neurological Disorder: No - HEENT Hx HEENT Disorder: No - Renal Hx Renal Disorder: No - Endocrine/Metabolic Hx Endocrine Disorders: No - Hematological/Oncological Hx Blood Disorders: No - Integumentary Hx Dermatological Disorder: No - Musculoskeletal/Rheumatological Hx Musculoskeletal Disorders: Yes Hx Arthritis: Yes Hx Falls: No Other/Comment: right knee Sx - Gastrointestinal Hx Gastrointestinal Disorders: No - Genitourinary/Gynecological Hx Genitourinary Disorders: No - Psychiatric Hx Psychophysiologic Disorder: Yes Hx Depression: Yes Hx Substance Use: Yes (heroine, MJ) Other/Comment: h/o suicidal ideation , 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, MJ and heroine use - Surgical History Hx Orthopedic Surgery: Yes Other/Comment: Right knee surgery 08/2012, 09/2014 - Anesthesia Hx Anesthesia: Yes Hx Anesthesia Reactions: No Hx Malignant Hyperthermia: No - Suicidal Assessment Feels Threatened In Home Enviroment: No Family/Social History - Physician Review Nursing Documentation Reviewed: Yes Family/Social History: Unknown Family HX Smoking Status: Current Some Days Smoker Hx Alcohol Use: No Hx Substance Use: Yes (heroine, MJ) Hx Substance Use Treatment: No Allergies/Home Meds Allergies/Adverse Reactions: Allergies No Known Allergies Allergy (Verified 08/23/18 19:54) Review of Systems - Review of Systems Constitutional: absent: Fatigue, Fevers Eyes: absent: Vision Changes ENT: absent: Hearing Changes Respiratory: absent: SOB, Cough Cardiovascular: absent: Chest Pain Gastrointestinal: absent: Abdominal Pain, Diarrhea, Nausea, Vomiting Musculoskeletal: absent: Arthralgias, Back Pain Skin: Rash, Pruritis, Skin Lesions. absent: Laceration, Abscess, Ulcer, Cellulitis Neurological: absent: Headache Psychiatric: absent: Anxiety, Depression, Suicidal Ideation Physical Exam Vital Signs Reviewed: Yes Vital Signs Temp Pulse Resp BP Pulse Ox 10/12/18 08:58 98.6 F 84 18 140/77 97 Temperature: Afebrile Blood Pressure: Normal Pulse: Regular Respiratory Rate: Normal Appearance: Positive for: Well-Appearing, Non-Toxic, Comfortable Pain Distress: Mild Mental Status: Positive for: Alert and Oriented X 3 - Systems Exam Head: Present: Atraumatic, Normocephalic Pupils: Present: PERRL Extroacular Muscles: Present: EOMI Conjunctiva: Present: Normal Mouth: Present: Moist Mucous Membranes Neck: Present: Normal Range of Motion Respiratory/Chest: Present: Clear to Auscultation, Good Air Exchange. No: Respiratory Distress, Accessory Muscle Use Cardiovascular: Present: Regular Rate and Rhythm, Normal S1, S2. No: Murmurs Abdomen: No: Tenderness, Distention, Peritoneal Signs Back: Present: Normal Inspection Upper Extremity: Present: Normal Inspection, Other (bilateral wrist/forearm: wrist noted to have skin lichenification and mild warmth rash noted on the bilat eral wrist and distal forearm with no streaking or ulcer, no skin breaking, FROM without limitation, sensation intact, motor 5/5, +radial pulse, capillary refill< 2 seconds, neurovascular intact. ). No: Cyanosis, Edema Lower Extremity: Present: Normal Inspection. No: Edema Neurological: Present: GCS=15, CN II-XII Intact, Speech Normal Skin: Present: Warm, Dry, Normal Color. No: Rashes Psychiatric: Present: Alert, Oriented x 3, Normal Insight, Normal Concentration Medical Decision Making ED Course and Treatment: 10/12/18 09:26 -decadron IM and benadryl, bactrim ds 10/12/18 11:16 -Pt. feels better, request to be discharged home. -Discharge home with benadryl, bactrim ds, topical steroid cream, follow up with your own pmd and packaging design engineer within 2 days, return to the ER for any new or worsening signs or symptoms. - PA / SWIMMING PROFESSOR / Resident Statement MD/DO has reviewed & agrees with the documentation as recorded. Disposition/Present on Arrival - Present on Arrival Any Indicators Present on Arrival: No History of DVT/PE: No History of Uncontrolled Diabetes: No Urinary Catheter: No History of Decub. Ulcer: No History Surgical Site Infection Following: None - Disposition Have Diagnosis and Disposition been Completed?: Yes Diagnosis: Dermatitis Disposition: HOME/ ROUTINE Disposition Time: 09:48 Patient Plan: Discharge Patient Problems: Current Active Problems Problem Status Onset Dermatitis Acute Condition: IMPROVED Additional Instructions: -Discharge home with benadryl, bactrim ds, topical steroid cream, follow up with your own pmd and packaging design engineer within 2 days, return to the ER for any new or worsening signs or symptoms. Prescriptions: DiphenhydrAMINE [Benadryl] 50 mg PO QID PRN #30 cap PRN Reason: Other Sulfamethoxazole/Trimethoprim [Bactrim Ds Tablet] 1 each PO BID #20 tablet Triamcinolone 0.25% [Triamcinolone Acetonide] 1 appl TP BID #30 g Referrals: Rubio Cintron MD [Staff Provider] - Follow up with primary Forms: [facility] (Latvian), WORK NOTE
[2018-10-12] MEDS ORDERED: Tmp-Smz 800 mg-160 mg DS Tab PO STA (09:27)
[2018-10-12 10:55] VITALS: BP 135/84; PULSE 87; O2SAT 98
== END 2018-10-12 11:26 | disposition home or self-care (01) ==
LOC: ED 08:39
DX: L30.9 Dermatitis, unspecified (principal)
CPT/HCPCS: 96372; 99283; J1100

== ENCOUNTER 2019-01-02 08:23 | Emergency (ER) | payer MEDICAID ==
[2019-01-02 08:43] VITALS: BMI 30.7
[2019-01-02 08:45] VITALS: RESP 18; O2SAT 99
--- NOTE | 2019-01-02 09:08 | ED PDOC ---
Arrival/HPI - General Chief Complaint: Upper Extremity Problem/Injury Historian: Patient - History of Present Illness Narrative History of Present Illness (Text): 01/02/19 09:09 Pt is a 58 yo male with a PMH of asthma, torn meniscus, heroine abuse who pre sents to the ED complaining of 9/10 throbbing/sharp right elbow pain which started yesterday. 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 Pt denies trying any pain relievers such as tylenol or ibuprofen due to "stomach issues" in the past. Pt tried using a hot compress on his right elbow to alleviate the pain, but it did not help. Pt states his right elbow is swollen. Denies chest pain, shortness of breath, nausea or vomiting. Time/Duration: 24 hours Symptom Course: Worsening Quality: Stabbing Severity Level: 9 Activities at Onset: Rest Context: Sitting Past Medical History - Infectious Disease Hx of Infectious Diseases: None - Tetanus Immunization Tetanus Immunization: Unknown - Cardiac Hx Cardiac Disorders: No - Pulmonary Hx Respiratory Disorders: Yes Hx Asthma: Yes Hx Bronchitis: Yes - Neurological Hx Neurological Disorder: No - HEENT Hx HEENT Disorder: No - Renal Hx Renal Disorder: No - Endocrine/Metabolic Hx Endocrine Disorders: No - Hematological/Oncological Hx Blood Disorders: No - Integumentary Hx Dermatological Disorder: No - Musculoskeletal/Rheumatological Hx Musculoskeletal Disorders: Yes Hx Arthritis: Yes Hx Falls: No Other/Comment: right knee Sx - Gastrointestinal Hx Gastrointestinal Disorders: No - Genitourinary/Gynecological Hx Genitourinary Disorders: No - Psychiatric Hx Psychophysiologic Disorder: Yes Hx Depression: Yes Hx Substance Use: Yes (heroine, MJ) Other/Comment: h/o suicidal ideation , 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, MJ and heroine use - Surgical History Hx Orthopedic Surgery: Yes Other/Comment: Right knee surgery 08/2012, 09/2014 - Anesthesia Hx Anesthesia: Yes Hx Anesthesia Reactions: No Hx Malignant Hyperthermia: No - Suicidal Assessment Feels Threatened In Home Enviroment: No Family/Social History Family/Social History: Diabetes, Hypertension Smoking Status: Current Some Days Smoker Hx Alcohol Use: No Hx Substance Use: Yes (heroine, MJ) Hx Substance Use Treatment: No Allergies/Home Meds Allergies/Adverse Reactions: Allergies No Known Allergies Allergy (Verified 08/23/18 19:54) Home Medications: Home Meds Medication Instructions Recorded Confirmed No Known Home Med 01/02/19 01/02/19 Review of Systems - Review of Systems Constitutional: Normal Eyes: Normal ENT: Normal Respiratory: Normal Cardiovascular: Normal Gastrointestinal: Normal Musculoskeletal: Other (elbow pain) Skin: Normal Neurological: Normal Endocrine: Normal Hemo/Lymphatic: Normal Psychiatric: Normal Physical Exam Vital Signs Reviewed: Yes Vital Signs Temp Pulse Resp BP Pulse Ox 01/02/19 08:41 98 F 72 18 123/80 99 Temperature: Afebrile Blood Pressure: Normal Pulse: Regular Respiratory Rate: Normal Appearance: Positive for: Well-Appearing Mental Status: Positive for: Alert and Oriented X 3 - Systems Exam Head: Present: Atraumatic, Normocephalic Pupils: Present: PERRL Extroacular Muscles: Present: EOMI Mouth: Present: Moist Mucous Membranes Pharnyx: Present: Normal Respiratory/Chest: Present: Clear to Auscultation, Good Air Exchange. No: Respiratory Distress, Accessory Muscle Use Cardiovascular: Present: Regular Rate and Rhythm, Normal S1, S2 Abdomen: Present: Normal Bowel Sounds. No: Tenderness, Distention Upper Extremity: Present: Swelling, Other (right elbow has pin point tenderness over the lateral epicondyle ). No: Normal Inspection, Normal ROM Lower Extremity: Present: Normal Inspection. No: Edema Neurological: Present: GCS=15, CN II-XII Intact. No: Speech Normal Skin: Present: Warm, Dry, Normal Color Psychiatric: Present: Alert, Oriented x 3 Medical Decision Making ED Course and Treatment: 01/02/19 09:20 5 PO valium 60 IM toradol Right elbow Xray 3 view 01/02/19 10:09 symptoms are improving have pt follow up as an out pt with ortho Pt seen, examined, assessment and plan disucssed with Dr Trace Paige PGY1 - PA / [employer] MAT ASSEMBLER / Resident Statement / has reviewed & agrees with the documentation as recorded. BLAIRE has examined the patient and agrees with the treatment plan. Disposition/Present on Arrival - Present on Arrival Any Indicators Present on Arrival: No History of DVT/PE: No History of Uncontrolled Diabetes: No Urinary Catheter: No History of Decub. Ulcer: No History Surgical Site Infection Following: None - Disposition Have Diagnosis and Disposition been Completed?: Yes Diagnosis: Lateral epicondylitis Disposition: HOME/ ROUTINE Disposition Time: 10:11 Patient Plan: Discharge Patient Problems: Current Active Problems Problem Status Onset Lateral epicondylitis Acute Condition: GOOD Discharge Instructions (ExitCare): Lateral Epicondylitis Referrals: Jono Moncada MD [Primary Care Provider] - Follow up with primary Forms: [employer] (Armenian)
[2019-01-02 10:22] VITALS: BP 129/88; PULSE 77; TEMP 98.3
--- NOTE | 2019-01-02 10:22 | RAD ---
Date of service: 01/02/2019 PROCEDURE: Radiographs of the right elbow. HISTORY: elbow pain COMPARISON: No prior. TECHNIQUE: 3 views obtained. FINDINGS: BONES: Normal. No fracture. JOINTS: Normal. No osteoarthritis. SOFT TISSUES: Normal. JOINT EFFUSION: None. OTHER FINDINGS: None. IMPRESSION: Unremarkable radiographs of the right elbow.
== END 2019-01-02 10:22 | disposition home or self-care (01) ==
LOC: ED 08:23
DX: M77.11 Lateral epicondylitis, right elbow (principal)
CPT/HCPCS: 73080; 96372; 99282; J1885